=== PATIENT | female | born 1950 ===

== ENCOUNTER 2017-08-04 07:45 | Day surgery (SDC) | payer MEDICARE ==
[2017-08-04 08:45] VITALS: BMI 30.1
--- NOTE | 2017-08-04 08:47 | CP.SDSHP ---
Same Day Surgery H & P - History Proposed Procedure: Screening colonoscopy Pre-Op Diagnosis: Screening for colon cancer - Previous Medical/Surgical History Endocrine/Metabolic: Diabetes Previous Surgical History: Hysterectomy - Allergies Allergies: Allergies No Known Allergies Allergy (Unverified 03/22/13 13:00) - Current Medications Current Medications: see reconciliation sheet - Physical Exam General Appearance: WD WN female in NAD Mental Status: Alert & Oriented x3 Neuro: WNL Heart: WNL Lungs: WNL GI: WNL - {Optional Preform as Required} Abdomen: WNL - Impression Impression: Screening for colorectal cancer Pt. Evaluated Today:Candidate for Anesthesia & Procedure: Yes - Date & Time Date: 08/04/17 Time: 09:51 Short Stay Discharge - Short Stay Discharge Admitting Diagnosis/Reason for Visit: ENCOUNTER FOR SCREENING FOR MALIGNANT NEOPLASM OF Disposition: HOME/ ROUTINE
[2017-08-04] MEDS ORDERED: Propofol 10 mg/ml Inj (20 ML) ONE ×2 (09:54→10:28)
[2017-08-04] MEDS ORDERED: Lactated Ringer's 500 ML IV ONE ×2 (10:10→10:50)
[2017-08-04 11:02] VITALS: TEMP 98.4
[2017-08-04 11:10] VITALS: O2SAT 100
[2017-08-04 11:36] VITALS: BP 115/60; PULSE 53; RESP 15
== END 2017-08-04 11:50 | disposition home or self-care (01) ==
LOC: C.ENDO 07:45
PROVIDERS: ATTEND Internal Medicine Gastroenterology
DX: K64.8 Other hemorrhoids (principal)
CPT/HCPCS: 45378; 82948; J2704; J3010; J7120